=== PATIENT | female | born 1955 | race Caucasian/White ===

== ENCOUNTER 2016-04-29 12:20 | Inpatient (IN) | payer MEDICARE ==
[~2016-04-29] VITALS: Ht 165.1 cm; Wt 90.0 kg
[~2016-04-29 12:20] MED LIST: ACET500T76 PO; ALPR-475 PO; ALPR1TAB2 PO; ASPI325T4 PO; CHOL500014 PO; FLAX100029 PO; GABA300C PO; HYDR-3138 PO; HYDR-3144 PO; HYDR4TAB16 PO; LISI5TAB7 PO; MELO-184 PO; MORP30TA3 PO; MORP30TA81 PO; MULT-658 PO; NIAC500T85 PO; OMEP20CA9 PO; SIMV20TA3 PO
[2016-04-29] MEDS ORDERED: OXYcodone/APAP 10/325MG TABLET ONE (13:11)
[2016-04-29] MEDS ORDERED: OXYcodone/APAP 10/325MG TABLET PO ONE (13:30)
[2016-04-29] MEDS ORDERED: SODIUM CHLORIDE 0.9% 1,000 ML IV ONE ×2 (13:46→13:49)
[2016-04-29] MEDS ORDERED: SODIUM CHLORIDE FLUSH 10ML SYR IVF ONE (14:00)
[2016-04-29] MEDS ORDERED: ONDANSETRON 2MG/ML, 2ML IVPush ONE (14:00)
[2016-04-29] MEDS ORDERED: HYDROmorphone 1 MG/ML, 1ML ONE ×5 (14:22→21:18)
[2016-04-29] MEDS ORDERED: ONDANSETRON 2MG/ML, 2ML ONE ×2 (14:22→18:24)
[2016-04-29 14:25] LABS: HEMOGLOBIN 15.4 g/dL (11.7-16.4)
[2016-04-29] MEDS: HYDROmorphone 1 MG/ML, 1ML IVPush PRN ×2 (14:29→14:34)
[2016-04-29 14:51] LABS: BLOOD UREA NITROGEN 9 mg/dL (7-18)
[2016-04-29] MEDS ORDERED: HYDROmorphone 1 MG/ML, 1ML IV ONE ×3 (15:30→18:00)
[2016-04-29] MEDS ORDERED: HYDROmorphone 2 MG/ML, 1ML ONE ×2 (16:16→17:42)
[2016-04-29] MEDS: SODIUM CHLORIDE 0.9% 1,000 ML IV SCH (16:19)
[2016-04-29] MEDS: HYDROmorphone 2 MG/ML, 1ML IV PRN ×4 (16:26→23:53)
[2016-04-29] MEDS ORDERED: GUAIFENESIN/DM 200-20MG, 10ML UDC PO PRN (16:30)
[2016-04-29] MEDS ORDERED: ONDANSETRON 2MG/ML, 2ML IVP PRN (16:30)
[2016-04-29] MEDS ORDERED: ENOXAPARIN 40 MG/0.4 ML SQ SCH (16:30)
[2016-04-29] MEDS ORDERED: DOCUSATE 100 MG CAPSULE PO PRN (16:30)
[2016-04-29] MEDS ORDERED: LACTATED RINGERS 1,000 ML IV SCH (16:45)
[2016-04-29] MEDS ORDERED: FENTANYL PF 250 MCG/5ML ONE (17:32)
[2016-04-29] MEDS ORDERED: KETAMINE 10 MG/ML, 20ML ONE (17:32)
[2016-04-29] MEDS ORDERED: MIDAZOLAM 1 MG/ML, 2ML ONE (17:33)
[2016-04-29] MEDS ORDERED: NEOSTIGMINE 1 MG/ML, 10ML ONE (18:24)
[2016-04-29] MEDS ORDERED: PROPOFOL 10 MG/ML, 20ML ONE (18:24)
[2016-04-29] MEDS ORDERED: CEFAZOLIN 1,000 MG ONE (18:24)
[2016-04-29] MEDS ORDERED: DEXAMETHASONE 4 MG/ML, 1ML ONE (18:24)
[2016-04-29] MEDS ORDERED: GLYCOPYRROLATE 0.2MG/1ML ONE (18:24)
[2016-04-29] MEDS ORDERED: ROCURONIUM 10 MG/ML ONE (18:24)
[2016-04-29] MEDS ORDERED: PHENYLEPHRINE 10 MG/ML ONE (18:24)
[2016-04-29] MEDS ORDERED: EPHEDRINE 50 MG/ML, 1ML ONE (18:24)
[2016-04-29] MEDS ORDERED: MEPERIDINE/PF 25MG/0.5ML IVPush PRN (20:00)
[2016-04-29] MEDS ORDERED: PROMETHAZINE 25 MG/ML, 1ML IV PRN ×2 (20:00→22:30)
[2016-04-29] MEDS ORDERED: hydrALAzine 20 MG/ML, 1ML IV PRN (20:00)
[2016-04-29] MEDS ORDERED: ALBUTEROL SULFATE 2.5 MG/3 ML NPPB PRN (20:00)
[2016-04-29] MEDS ORDERED: OXYcodone 5 MG/5 ML ORAL.SOL UDC PO PRN ×2 (20:00→23:00)
[2016-04-29] MEDS ORDERED: EPHEDRINE 50 MG/ML, 1ML IVPush PRN (20:00)
[2016-04-29] MEDS ORDERED: LABETALOL 5MG/ML, 20ML IV PRN (20:00)
[2016-04-29] MEDS ORDERED: ACETAMINOPHEN 325 MG TABLET PO PRN (20:00)
[2016-04-29] MEDS ORDERED: ONDANSETRON 2MG/ML, 2ML IVPush PRN (20:00)
[2016-04-29] MEDS ORDERED: HYDROmorphone 1 MG/ML, 1ML IV PRN (20:00)
[2016-04-29] MEDS: FAMOTIDINE 20 MG TABLET PO SCH (21:00)
[2016-04-29] MEDS ORDERED: BUPIVACAINE/PF-EPI 0.5% 1:200K ONE (21:51)
[2016-04-29] MEDS ORDERED: BUPIVACAINE/PF-EPI 0.5% 1:200K IM ONE (21:52)
[2016-04-29] MEDS ORDERED: OXYcodone 5 MG/5 ML ORAL.SOL UDC ONE (22:14)
[2016-04-29] MEDS ORDERED: FENTANYL PF 100 MCG/2ML ONE (22:14)
[2016-04-29] MEDS ORDERED: PROMETHAZINE 25 MG/ML, 1ML ONE (22:15)
[2016-04-29] MEDS: FENTANYL PF 100 MCG/2ML IV PRN ×2 (22:20→22:35)
[2016-04-29] MEDS ORDERED: DIAZEPAM 5 MG/ML, 2ML IV ONE (22:30)
[2016-04-29] MEDS ORDERED: DIAZEPAM 5 MG/ML, 2ML ONE (22:44)
[2016-04-29] MEDS ORDERED: morphine SULFATE 10 MG/ML, 1ML IVPush PRN (23:00)
[2016-04-30] MEDS: KETOROLAC 30 MG/1 ML IVPush SCH ×3 (00:07→12:22)
[2016-04-30] MEDS: HYDROmorphone 2 MG/ML, 1ML IV PRN ×8 (00:12→23:40)
[2016-04-30 00:38] VITALS: BP 153/98
[2016-04-30] MEDS: LORazepam 2 MG/ML, 1ML IVPush PRN ×2 (01:27→05:25)
[2016-04-30] MEDS: SODIUM CHLORIDE 0.9% 1,000 ML IV SCH (02:19)
[2016-04-30] MEDS: CEFAZOLIN PMX 1GM/50ML 50 ML IVPB SCH ×2 (03:01→11:14)
[2016-04-30 03:05] VITALS: BP 138/84
[2016-04-30 06:34] LABS: HEMOGLOBIN 12.1 g/dL (11.7-16.4)
[2016-04-30 06:43] LABS: BLOOD UREA NITROGEN 8 mg/dL (7-18)
[2016-04-30 07:15] VITALS: BP 125/73
[2016-04-30] MEDS ORDERED: SODIUM CHLORIDE 0.9% 1,000 ML IV SCH (08:00)
[2016-04-30] MEDS: GABAPENTIN 300 MG CAPSULE PO SCH (09:08)
[2016-04-30] MEDS: FAMOTIDINE 20 MG TABLET PO SCH ×2 (09:08→21:37)
[2016-04-30] MEDS: CHOLECALCIFEROL 1,000 UNIT TABLET PO SCH (09:09)
[2016-04-30] MEDS: ANASTROZOLE 1 MG TABLET PO SCH (09:09)
[2016-04-30] MEDS: MULTIVITAMIN 1 TABLET PO SCH (09:09)
[2016-04-30] MEDS: OXYBUTYNIN CHLORIDE 5 MG TABLET PO SCH ×3 (09:39→21:37)
[2016-04-30] MEDS: HYDROcodone/APAP 5/325 TABLET PO PRN ×3 (11:13→21:37)
[2016-04-30 13:24] VITALS: BP 103/58
[2016-04-30] MEDS: ENOXAPARIN 40 MG/0.4 ML SQ SCH (18:00)
[2016-04-30 19:47] VITALS: BP 117/68
[2016-04-30 21:19] LABS: PATH.CAST-FLAG NOT PRESENT; SPERM-FLAG NOT PRESENT; SRC-FLAG NOT PRESENT; XTAL-FLAG NOT PRESENT; YLC-FLAG NOT PRESENT
[2016-05-01 01:28] VITALS: BP 129/69
[2016-05-01] MEDS: HYDROcodone/APAP 5/325 TABLET PO PRN ×3 (01:42→10:01)
[2016-05-01] MEDS: HYDROmorphone 2 MG/ML, 1ML IV PRN ×4 (04:39→13:59)
[2016-05-01 05:33] LABS: HEMOGLOBIN 11.3 g/dL (11.7-16.4)
[2016-05-01 06:12] LABS: BLOOD UREA NITROGEN 8 mg/dL (7-18)
[2016-05-01] MEDS: FAMOTIDINE 20 MG TABLET PO SCH ×2 (08:04→22:23)
[2016-05-01] MEDS: GABAPENTIN 300 MG CAPSULE PO SCH (08:04)
[2016-05-01] MEDS: OXYBUTYNIN CHLORIDE 5 MG TABLET PO SCH ×3 (08:04→22:23)
[2016-05-01] MEDS: MULTIVITAMIN 1 TABLET PO SCH (08:04)
[2016-05-01] MEDS: CHOLECALCIFEROL 1,000 UNIT TABLET PO SCH (08:04)
[2016-05-01] MEDS: ANASTROZOLE 1 MG TABLET PO SCH (08:05)
[2016-05-01 08:30] VITALS: BP 101/60
[2016-05-01] MEDS ORDERED: OXYcodone 5 MG/5 ML ORAL.SOL UDC PO PRN (14:00)
[2016-05-01 14:17] VITALS: BP 121/70
[2016-05-01] MEDS: ACETAMINOPHEN 500 MG TABLET PO SCH ×2 (15:16→20:01)
[2016-05-01] MEDS ORDERED: OXYcodone IR 5MG TABLET PO PRN (17:30)
[2016-05-01] MEDS: ENOXAPARIN 40 MG/0.4 ML SQ SCH (18:09)
[2016-05-01] MEDS: DIAZEPAM 5 MG TABLET PO PRN (20:08)
[2016-05-01 20:50] VITALS: BP 110/69
[2016-05-01] MEDS: OXYcodone/APAP 10/325MG TABLET PO PRN (22:23)
[2016-05-02 02:50] VITALS: BP 148/79
[2016-05-02] MEDS: OXYcodone/APAP 10/325MG TABLET PO PRN (04:04)
[2016-05-02 06:40] LABS: HEMOGLOBIN 10.7 g/dL (11.7-16.4)
[2016-05-02 06:47] LABS: BLOOD UREA NITROGEN 11 mg/dL (7-18)
[2016-05-02 06:55] VITALS: BP 101/52
[2016-05-02] MEDS ORDERED: OXYcodone IR 5MG TABLET PO PRN (08:00)
[2016-05-02] MEDS: CHOLECALCIFEROL 1,000 UNIT TABLET PO SCH (08:15)
[2016-05-02] MEDS: GABAPENTIN 300 MG CAPSULE PO SCH (08:16)
[2016-05-02] MEDS: ANASTROZOLE 1 MG TABLET PO SCH (08:16)
[2016-05-02] MEDS: OXYBUTYNIN CHLORIDE 5 MG TABLET PO SCH ×3 (08:16→23:00)
[2016-05-02] MEDS: FAMOTIDINE 20 MG TABLET PO SCH ×2 (08:16→23:00)
[2016-05-02] MEDS: MULTIVITAMIN 1 TABLET PO SCH (08:16)
[2016-05-02] MEDS: DIAZEPAM 5 MG TABLET PO PRN ×3 (08:19→20:19)
[2016-05-02] MEDS ORDERED: ACETAMINOPHEN 500 MG TABLET PO ONE (09:00)
[2016-05-02] MEDS: OXYcodone IR 5MG TABLET PO PRN ×4 (13:33→23:00)
[2016-05-02 13:35] VITALS: BP 134/73
[2016-05-02] MEDS ORDERED: FAMO20TA7 PO (14:04)
[2016-05-02] MEDS ORDERED: OXYB5TAB7 PO (14:04)
[2016-05-02] MEDS ORDERED: OXYC5TAB3 PO (14:04)
[2016-05-02] MEDS ORDERED: TRAM50TA2 PO (14:04)
[2016-05-02] MEDS ORDERED: DIAZ5TAB4 PO (14:04)
[2016-05-02] MEDS ORDERED: ASPI325T4 PO (14:04)
[2016-05-02] MEDS: ENOXAPARIN 40 MG/0.4 ML SQ SCH (17:44)
[2016-05-02 22:46] VITALS: BP 132/67
[2016-05-03] MEDS: OXYcodone IR 5MG TABLET PO PRN ×3 (02:21→08:56)
[2016-05-03 02:23] VITALS: BP 112/64
[2016-05-03 04:15] VITALS: BP 101/63
[2016-05-03] MEDS: DIAZEPAM 5 MG TABLET PO PRN (04:39)
[2016-05-03 06:01] LABS: BLOOD UREA NITROGEN 14 mg/dL (7-18)
[2016-05-03 06:22] LABS: HEMOGLOBIN 10.7 g/dL (11.7-16.4)
[2016-05-03 08:48] VITALS: BP 115/75
[2016-05-03] MEDS: FAMOTIDINE 20 MG TABLET PO SCH (08:56)
[2016-05-03] MEDS: OXYBUTYNIN CHLORIDE 5 MG TABLET PO SCH (08:56)
[2016-05-03] MEDS: CHOLECALCIFEROL 1,000 UNIT TABLET PO SCH (08:56)
[2016-05-03] MEDS: GABAPENTIN 300 MG CAPSULE PO SCH (08:56)
[2016-05-03] MEDS: MULTIVITAMIN 1 TABLET PO SCH (08:56)
[2016-05-03] MEDS: ANASTROZOLE 1 MG TABLET PO SCH (08:58)
== END 2016-05-03 09:16 | disposition home or self-care (01) | DRG 494 ==
LOC: ED 13:46 → EDIP 14:43 → 4NOR 23:36
PROVIDERS: ADMIT Internal Medicine; ATTEND Internal Medicine
PROC: 0T9B70Z Drainage of Bladder with Drainage Device, Via Natural or Artificial Opening (ICD-10-PCS; 2016-04-29)
PROC: 0QSH04Z Reposition Left Tibia with Internal Fixation Device, Open Approach (ICD-10-PCS; principal; 2016-04-29 17:00)
DX: S82.142A Displaced bicondylar fracture of left tibia, initial encounter for closed fracture (principal); D72.829 Elevated white blood cell count, unspecified; F12.90 Cannabis use, unspecified, uncomplicated; M19.90 Unspecified osteoarthritis, unspecified site; R33.9 Retention of urine, unspecified; Z96.643 Presence of artificial hip joint, bilateral; W01.0XXA Fall on same level from slipping, tripping and stumbling without subsequent striking against object, initial encounter; Y92.009 Unspecified place in unspecified non-institutional (private) residence as the place of occurrence of the external cause; Z79.811 Long term (current) use of aromatase inhibitors; Z85.3 Personal history of malignant neoplasm of breast; Z87.891 Personal history of nicotine dependence; Z79.899 Other long term (current) drug therapy
CPT/HCPCS: 36415; 76001; 80048; 81001; 82040; 85025; 93005; 96374; 96375; C1713; J0690; J1100; J1170; J1650; J2250; J2405; J2550; J2704; J2710; J3010; J3490; C1762; J2060; J2370; J7030; J7120

== ENCOUNTER 2016-05-29 10:11 | Inpatient (IN) | payer MEDICARE ==
[~2016-05-29] VITALS: Ht 165.1 cm; Wt 82.1 kg
[~2016-05-29 10:11] MED LIST changes: +DIAZ5TAB4 PO; +FAMO20TA7 PO; +OXYB5TAB7 PO; +OXYC5TAB3 PO; +TRAM50TA2 PO
[2016-05-29] MEDS ORDERED: LIDOCAINE 1%, 2ML ONE (10:53)
[2016-05-29] MEDS ORDERED: ANAS1TAB3 PO (11:02)
[2016-05-29] MEDS ORDERED: MULT-516 PO (11:02)
[2016-05-29] MEDS ORDERED: ALPR-475 PO (11:02)
[2016-05-29] MEDS ORDERED: CHOL40002 PO (11:02)
[2016-05-29] MEDS ORDERED: OMEP20TA62 PO (11:02)
[2016-05-29] MEDS ORDERED: NIAC10002 PO (11:02)
[2016-05-29] MEDS ORDERED: OXYC-302 PO (11:02)
[2016-05-29] MEDS ORDERED: SULF1TAB24 PO (11:02)
[2016-05-29 11:07] VITALS: BP 113/71
[2016-05-29] MEDS: LACTATED RINGERS 1,000 ML IV SCH (11:18)
[2016-05-29] MEDS ORDERED: LIDOCAINE 1%, 2ML SQ PRN (11:30)
[2016-05-29] MEDS ORDERED: OXYcodone/APAP 5/325MG TABLET PO ONE (12:30)
[2016-05-29] MEDS ORDERED: FENTANYL PF 250 MCG/5ML ONE (13:09)
[2016-05-29] MEDS ORDERED: MIDAZOLAM 1 MG/ML, 2ML ONE (13:09)
[2016-05-29] MEDS ORDERED: HYDROmorphone 1 MG/ML, 1ML IV PRN (14:00)
[2016-05-29] MEDS ORDERED: hydrALAzine 20 MG/ML, 1ML IV PRN (14:00)
[2016-05-29] MEDS ORDERED: MIDAZOLAM 1 MG/ML, 2ML IV PRN (14:00)
[2016-05-29] MEDS ORDERED: PROMETHAZINE 25 MG/ML, 1ML IV PRN (14:00)
[2016-05-29] MEDS ORDERED: EPHEDRINE 50 MG/ML, 1ML IVPush PRN (14:00)
[2016-05-29] MEDS ORDERED: METOPROLOL 1 MG/ML, 5ML IV PRN (14:00)
[2016-05-29] MEDS ORDERED: MEPERIDINE/PF 25MG/0.5ML IVPush PRN (14:00)
[2016-05-29] MEDS ORDERED: FENTANYL PF 100 MCG/2ML IV PRN (14:00)
[2016-05-29] MEDS ORDERED: LABETALOL 5MG/ML, 20ML IV PRN (14:00)
[2016-05-29] MEDS ORDERED: ACETAMINOPHEN 325 MG TABLET PO PRN (14:00)
[2016-05-29] MEDS ORDERED: OXYcodone 5 MG/5 ML ORAL.SOL UDC PO PRN (14:00)
[2016-05-29] MEDS ORDERED: ONDANSETRON 2MG/ML, 2ML IVPush PRN ×2 (14:00→14:30)
[2016-05-29] MEDS ORDERED: ALBUTEROL SULFATE 2.5 MG/3 ML NPPB PRN (14:00)
[2016-05-29] MEDS ORDERED: OXYcodone/APAP 5/325MG TABLET PO PRN (14:30)
[2016-05-29] MEDS ORDERED: BISACODYL 10 MG SUPP PR PRN (14:30)
[2016-05-29] MEDS ORDERED: PROMETHAZINE 25 MG/ML, 1ML IM PRN (14:30)
[2016-05-29] MEDS ORDERED: VANCOMYCIN PER PHARMACY MC PRN (14:30)
[2016-05-29 15:45] VITALS: BP 106/63
[2016-05-29] MEDS ORDERED: CEFAZOLIN 1,000 MG ONE (16:14)
[2016-05-29] MEDS ORDERED: PROPOFOL 10 MG/ML, 20ML ONE (16:14)
[2016-05-29] MEDS ORDERED: DEXAMETHASONE 4 MG/ML, 1ML ONE (16:14)
[2016-05-29] MEDS ORDERED: KETOROLAC 30 MG/1 ML ONE (16:14)
[2016-05-29] MEDS: HYDROcodone/APAP 5/325 TABLET PO PRN (16:52)
[2016-05-29] MEDS ORDERED: PHARMACOKINETIC MONITORING MC PRN (17:30)
[2016-05-29] MEDS ORDERED: PHARMACOKINETIC CONSULTATION MC ONE (17:30)
[2016-05-29] MEDS: VANCOMYCIN 1,500 MG in SODIUM CHLORIDE 0.9% 250 ML IV SCH (18:27)
[2016-05-29 19:25] VITALS: BP 90/53
[2016-05-29] MEDS: CEFAZOLIN PMX 1GM/50ML 50 ML IVPB SCH (20:32)
[2016-05-30 00:23] VITALS: BP 95/63
[2016-05-30 03:57] VITALS: BP 97/70
[2016-05-30] MEDS: CEFAZOLIN PMX 1GM/50ML 50 ML IVPB SCH ×2 (04:53→13:28)
[2016-05-30 05:09] LABS: BLOOD UREA NITROGEN 37 mg/dL (7-18)
[2016-05-30] MEDS: VANCOMYCIN 1,500 MG in SODIUM CHLORIDE 0.9% 250 ML IV SCH (05:28)
[2016-05-30] MEDS: HYDROcodone/APAP 5/325 TABLET PO PRN (05:34)
[2016-05-30 07:15] VITALS: BP 101/65
[2016-05-30] MEDS: HYDROmorphone 1 MG/ML, 1ML IVPush PRN (08:40)
[2016-05-30] MEDS: ENOXAPARIN 40 MG/0.4 ML SQ SCH (10:11)
[2016-05-30] MEDS: OXYcodone/APAP 7.5/325MG TABLET PO PRN ×3 (14:04→22:25)
[2016-05-30 14:25] VITALS: BP 107/66
[2016-05-30] MEDS ORDERED: CEFAZOLIN PMX 2GM/100ML 100 ML IV SCH (14:30)
[2016-05-30] MEDS ORDERED: CEFAZOLIN PMX 1GM/50ML 50 ML IV ONE (15:00)
[2016-05-30 19:21] VITALS: BP 103/63
[2016-05-30] MEDS: DIAZEPAM 5 MG TABLET PO PRN (20:12)
[2016-05-30] MEDS: CEFAZOLIN PMX 2GM/50ML 50 ML IV SCH (22:26)
[2016-05-31 01:20] VITALS: BP 136/70
[2016-05-31] MEDS: OXYcodone/APAP 7.5/325MG TABLET PO PRN ×4 (05:50→23:31)
[2016-05-31] MEDS: CEFAZOLIN PMX 2GM/50ML 50 ML IV SCH ×3 (06:09→23:31)
[2016-05-31 07:09] VITALS: BP 118/66
[2016-05-31] MEDS: ENOXAPARIN 40 MG/0.4 ML SQ SCH (09:51)
[2016-05-31 14:38] VITALS: BP 134/82
[2016-05-31 18:25] VITALS: BP 136/82
[2016-05-31] MEDS: HYDROmorphone 1 MG/ML, 1ML IVPush PRN ×2 (21:13→21:49)
[2016-05-31] MEDS: DIAZEPAM 5 MG TABLET PO PRN (21:18)
[2016-06-01 01:35] VITALS: BP 141/97
[2016-06-01] MEDS: OXYcodone/APAP 7.5/325MG TABLET PO PRN ×6 (03:15→23:59)
[2016-06-01] MEDS: SENNA/DOCUSATE TABLET PO PRN ×2 (03:53→23:59)
[2016-06-01 06:33] VITALS: BP 129/67
[2016-06-01] MEDS: CEFAZOLIN PMX 2GM/50ML 50 ML IV SCH ×3 (06:45→23:49)
[2016-06-01] MEDS: ENOXAPARIN 40 MG/0.4 ML SQ SCH (10:07)
[2016-06-01 14:04] VITALS: BP 147/88
[2016-06-01] MEDS: HYDROmorphone 1 MG/ML, 1ML IVPush PRN (14:40)
[2016-06-01 20:37] VITALS: BP 171/68
[2016-06-02] MEDS: OXYcodone/APAP 7.5/325MG TABLET PO PRN ×7 (00:46→22:12)
[2016-06-02] MEDS: MAGNESIUM HYDROXIDE 8%, 30ML UDC PO PRN (00:46)
[2016-06-02 00:49] VITALS: BP 145/82
[2016-06-02] MEDS: CEFAZOLIN PMX 2GM/50ML 50 ML IV SCH ×3 (06:45→23:42)
[2016-06-02 07:10] VITALS: BP 119/64
[2016-06-02] MEDS: HYDROmorphone 1 MG/ML, 1ML IVPush PRN (09:19)
[2016-06-02] MEDS: ENOXAPARIN 40 MG/0.4 ML SQ SCH (09:19)
[2016-06-02 13:37] VITALS: BP 119/64
[2016-06-02] MEDS: DIAZEPAM 5 MG TABLET PO PRN (20:01)
[2016-06-02 20:10] VITALS: BP 149/82
[2016-06-03 01:22] VITALS: BP 138/80
[2016-06-03] MEDS: OXYcodone/APAP 7.5/325MG TABLET PO PRN ×4 (02:02→20:54)
[2016-06-03] MEDS: CEFAZOLIN PMX 2GM/50ML 50 ML IV SCH ×2 (06:37→15:22)
[2016-06-03 07:07] VITALS: BP 164/93
[2016-06-03] MEDS: HYDROmorphone 1 MG/ML, 1ML IVPush PRN ×3 (09:00→21:42)
[2016-06-03] MEDS: ENOXAPARIN 40 MG/0.4 ML SQ SCH (10:34)
[2016-06-03] MEDS ORDERED: LORazepam 2 MG/ML, 1ML IVPush ONE (13:00)
[2016-06-03 13:01] VITALS: BP 115/72
[2016-06-03 18:29] VITALS: BP 146/81
[2016-06-03] MEDS: DIAZEPAM 5 MG TABLET PO PRN (20:54)
[2016-06-04] MEDS: HYDROmorphone 1 MG/ML, 1ML IVPush PRN ×8 (01:26→20:23)
[2016-06-04 02:06] VITALS: BP 120/76
[2016-06-04] MEDS: CEFAZOLIN PMX 2GM/50ML 50 ML IV SCH ×3 (02:09→18:03)
[2016-06-04 07:00] VITALS: BP 156/76
[2016-06-04] MEDS ORDERED: MIDAZOLAM 1 MG/ML, 2ML ONE ×2 (09:20→11:11)
[2016-06-04] MEDS ORDERED: FENTANYL PF 250 MCG/5ML ONE (09:20)
[2016-06-04] MEDS: ENOXAPARIN 40 MG/0.4 ML SQ SCH (10:00)
[2016-06-04] MEDS ORDERED: HYDROmorphone 2 MG/ML, 1ML ONE (10:59)
[2016-06-04] MEDS: HYDROmorphone 1 MG/ML, 1ML IV PRN ×2 (11:00→11:07)
[2016-06-04] MEDS ORDERED: FENTANYL PF 100 MCG/2ML ONE ×3 (11:11→11:52)
[2016-06-04] MEDS: FENTANYL PF 100 MCG/2ML IV PRN ×4 (11:14→11:58)
[2016-06-04] MEDS: MIDAZOLAM 1 MG/ML, 2ML IV PRN ×2 (11:18→11:39)
[2016-06-04] MEDS ORDERED: ONDANSETRON 2MG/ML, 2ML IVPush PRN (11:30)
[2016-06-04] MEDS ORDERED: ACETAMINOPHEN 325 MG TABLET PO PRN (11:30)
[2016-06-04] MEDS ORDERED: OXYcodone 5 MG/5 ML ORAL.SOL UDC PO PRN (11:30)
[2016-06-04] MEDS: OXYcodone/APAP 7.5/325MG TABLET PO PRN ×3 (13:01→21:32)
[2016-06-04 13:20] VITALS: BP 138/79
[2016-06-04 14:20] VITALS: BP 114/72
[2016-06-04] MEDS ORDERED: SUCCINYLCHOLINE 20 MG/ML, 10ML ONE (15:41)
[2016-06-04] MEDS ORDERED: ROCURONIUM 10 MG/ML ONE (15:41)
[2016-06-04] MEDS ORDERED: PROPOFOL 10 MG/ML, 20ML ONE (15:41)
[2016-06-04] MEDS ORDERED: ONDANSETRON 2MG/ML, 2ML ONE (15:41)
[2016-06-04] MEDS ORDERED: CEFAZOLIN 1,000 MG ONE (15:41)
[2016-06-04 19:09] VITALS: BP 98/62
[2016-06-05] MEDS: HYDROmorphone 1 MG/ML, 1ML IVPush PRN ×8 (00:03→23:52)
[2016-06-05 00:15] VITALS: BP 100/67
[2016-06-05] MEDS: OXYcodone/APAP 7.5/325MG TABLET PO PRN ×6 (01:39→21:42)
[2016-06-05] MEDS: CEFAZOLIN PMX 2GM/50ML 50 ML IV SCH ×2 (01:39→09:10)
[2016-06-05 03:11] VITALS: BP 100/66
[2016-06-05 06:35] VITALS: BP 110/71
[2016-06-05] MEDS: SENNA/DOCUSATE TABLET PO PRN (09:10)
[2016-06-05] MEDS: ENOXAPARIN 40 MG/0.4 ML SQ SCH (09:10)
[2016-06-05 12:52] VITALS: BP 101/61
[2016-06-05] MEDS ORDERED: MICAFUNGIN 100 MG in SODIUM CHLORIDE 0.9% 100 ML IV SCH (13:00)
[2016-06-05] MEDS: ERTAPENEM 1 GM in SODIUM CHLORIDE 0.9% 50 ML IV SCH (13:03)
[2016-06-05 18:28] VITALS: BP 132/80
[2016-06-06 00:42] VITALS: BP 98/66
[2016-06-06] MEDS: HYDROcodone/APAP 5/325 TABLET PO PRN (05:15)
[2016-06-06] MEDS: HYDROmorphone 1 MG/ML, 1ML IVPush PRN ×7 (05:16→21:53)
[2016-06-06 07:24] VITALS: BP 112/73
[2016-06-06] MEDS: HYDROcodone/APAP 10/325 MG TABLET PO PRN ×3 (11:22→20:29)
[2016-06-06] MEDS: FLUCONAZOLE 200 MG TABLET PO SCH (11:22)
[2016-06-06] MEDS: ENOXAPARIN 40 MG/0.4 ML SQ SCH (11:23)
[2016-06-06 13:39] VITALS: BP 122/68
[2016-06-06] MEDS: ERTAPENEM 1 GM in SODIUM CHLORIDE 0.9% 50 ML IV SCH (13:42)
[2016-06-06 20:20] VITALS: BP 119/69
[2016-06-07] MEDS: HYDROcodone/APAP 10/325 MG TABLET PO PRN ×6 (00:07→23:42)
[2016-06-07] MEDS: HYDROmorphone 1 MG/ML, 1ML IVPush PRN ×9 (00:07→23:43)
[2016-06-07 01:30] VITALS: BP 98/59
[2016-06-07 07:00] VITALS: BP 114/61
[2016-06-07] MEDS: ENOXAPARIN 40 MG/0.4 ML SQ SCH (10:36)
[2016-06-07] MEDS: FLUCONAZOLE 200 MG TABLET PO SCH (10:36)
[2016-06-07] MEDS: SENNA/DOCUSATE TABLET PO PRN (10:45)
[2016-06-07] MEDS: ERTAPENEM 1 GM in SODIUM CHLORIDE 0.9% 50 ML IV SCH (12:56)
[2016-06-07 13:19] LABS: ASPARTATE AMINO TRANSFERASE 62 U/L (15-37); BLOOD UREA NITROGEN 10 mg/dL (7-18)
[2016-06-07 14:31] VITALS: BP 110/67
[2016-06-07] MEDS: ANASTROZOLE 1 MG TABLET PO SCH (16:36)
[2016-06-07 18:28] VITALS: BP 100/51
[2016-06-08 01:42] VITALS: BP 107/66
[2016-06-08] MEDS: HYDROmorphone 1 MG/ML, 1ML IVPush PRN ×7 (02:45→22:44)
[2016-06-08] MEDS: HYDROcodone/APAP 10/325 MG TABLET PO PRN ×5 (03:37→23:34)
[2016-06-08 07:03] VITALS: BP 107/67
[2016-06-08] MEDS: FLUCONAZOLE 200 MG TABLET PO SCH (09:20)
[2016-06-08] MEDS: ENOXAPARIN 40 MG/0.4 ML SQ SCH (09:21)
[2016-06-08] MEDS: ANASTROZOLE 1 MG TABLET PO SCH (10:57)
[2016-06-08] MEDS: ERTAPENEM 1 GM in SODIUM CHLORIDE 0.9% 50 ML IV SCH (14:03)
[2016-06-08 15:21] VITALS: BP 126/69
[2016-06-08 18:35] VITALS: BP 111/69
[2016-06-09 01:57] VITALS: BP 118/69
[2016-06-09] MEDS: HYDROmorphone 1 MG/ML, 1ML IVPush PRN ×7 (02:02→20:39)
[2016-06-09] MEDS: SENNA/DOCUSATE TABLET PO PRN (02:56)
[2016-06-09] MEDS: HYDROcodone/APAP 10/325 MG TABLET PO PRN ×5 (03:32→21:43)
[2016-06-09 06:08] LABS: ASPARTATE AMINO TRANSFERASE 49 U/L (15-37); BLOOD UREA NITROGEN 13 mg/dL (7-18)
[2016-06-09 06:51] VITALS: BP 111/71
[2016-06-09] MEDS: FLUCONAZOLE 200 MG TABLET PO SCH (07:44)
[2016-06-09] MEDS: ENOXAPARIN 40 MG/0.4 ML SQ SCH (07:44)
[2016-06-09] MEDS: ANASTROZOLE 1 MG TABLET PO SCH (12:02)
[2016-06-09] MEDS: ERTAPENEM 1 GM in SODIUM CHLORIDE 0.9% 50 ML IV SCH (12:44)
[2016-06-09 13:25] VITALS: BP 101/60
[2016-06-09 18:38] VITALS: BP 110/72
[2016-06-10] MEDS: HYDROmorphone 1 MG/ML, 1ML IVPush PRN ×8 (00:18→22:50)
[2016-06-10] MEDS: HYDROcodone/APAP 10/325 MG TABLET PO PRN ×6 (01:46→23:45)
[2016-06-10 01:47] VITALS: BP 106/61
[2016-06-10 06:56] VITALS: BP 101/67
[2016-06-10] MEDS: ENOXAPARIN 40 MG/0.4 ML SQ SCH (09:38)
[2016-06-10] MEDS: SENNA/DOCUSATE TABLET PO PRN (09:59)
[2016-06-10] MEDS: FLUCONAZOLE 200 MG TABLET PO SCH (10:51)
[2016-06-10] MEDS: ANASTROZOLE 1 MG TABLET PO SCH (11:06)
[2016-06-10] MEDS: ERTAPENEM 1 GM in SODIUM CHLORIDE 0.9% 50 ML IV SCH (12:45)
[2016-06-10 13:28] VITALS: BP 101/69
[2016-06-10 20:18] VITALS: BP 107/61
[2016-06-11] MEDS: HYDROmorphone 1 MG/ML, 1ML IVPush PRN ×7 (02:32→21:44)
[2016-06-11] MEDS: HYDROcodone/APAP 10/325 MG TABLET PO PRN ×4 (03:50→20:32)
[2016-06-11 03:53] VITALS: BP 108/66
[2016-06-11 06:30] VITALS: BP 113/68
[2016-06-11] MEDS: SENNA/DOCUSATE TABLET PO PRN (08:26)
[2016-06-11] MEDS: DIAZEPAM 5 MG TABLET PO PRN (09:22)
[2016-06-11] MEDS: FLUCONAZOLE 200 MG TABLET PO SCH (10:18)
[2016-06-11] MEDS: ENOXAPARIN 40 MG/0.4 ML SQ SCH (10:18)
[2016-06-11] MEDS: ANASTROZOLE 1 MG TABLET PO SCH (12:11)
[2016-06-11 13:05] VITALS: BP 135/81
[2016-06-11] MEDS: ERTAPENEM 1 GM in SODIUM CHLORIDE 0.9% 50 ML IV SCH (13:12)
[2016-06-11 19:47] VITALS: BP 112/65
[2016-06-12] MEDS: HYDROmorphone 1 MG/ML, 1ML IVPush PRN ×6 (00:38→22:04)
[2016-06-12] MEDS: HYDROcodone/APAP 10/325 MG TABLET PO PRN ×4 (00:39→22:04)
[2016-06-12 01:59] VITALS: BP 117/63
[2016-06-12 07:30] VITALS: BP 112/65
[2016-06-12] MEDS ORDERED: MIDAZOLAM 1 MG/ML, 2ML ONE ×2 (07:57→13:07)
[2016-06-12] MEDS ORDERED: FENTANYL PF 250 MCG/5ML ONE (07:57)
[2016-06-12] MEDS: ENOXAPARIN 40 MG/0.4 ML SQ SCH (10:00)
[2016-06-12] MEDS ORDERED: CEFAZOLIN 1,000 MG ONE (10:33)
[2016-06-12] MEDS ORDERED: PROPOFOL 10 MG/ML, 50ML ONE (10:33)
[2016-06-12] MEDS ORDERED: KETAMINE 100 MG/ML, 5ML ONE (10:33)
[2016-06-12] MEDS ORDERED: ONDANSETRON 2MG/ML, 2ML ONE (10:33)
[2016-06-12] MEDS ORDERED: HYDROmorphone 1 MG/ML, 1ML ONE ×2 (10:56→12:25)
[2016-06-12] MEDS ORDERED: ACETAMINOPHEN 325 MG TABLET PO PRN (11:30)
[2016-06-12] MEDS ORDERED: PROMETHAZINE 25 MG/ML, 1ML IV PRN (11:30)
[2016-06-12] MEDS ORDERED: OXYcodone 5 MG/5 ML ORAL.SOL UDC PO PRN (11:30)
[2016-06-12] MEDS ORDERED: HYDROcodone/APAP 7.5-325MG/15ML UDC PO PRN (11:30)
[2016-06-12] MEDS ORDERED: ONDANSETRON 2MG/ML, 2ML IVPush PRN (11:30)
[2016-06-12] MEDS ORDERED: FENTANYL PF 100 MCG/2ML IV PRN (11:30)
[2016-06-12] MEDS ORDERED: MEPERIDINE/PF 25MG/0.5ML IVPush PRN (11:30)
[2016-06-12] MEDS ORDERED: HYDROcodone/APAP 7.5-325MG/15ML UDC ONE (12:38)
[2016-06-12] MEDS: MIDAZOLAM 1 MG/ML, 2ML IV PRN ×2 (13:00→14:00)
[2016-06-12] MEDS: HYDROmorphone 1 MG/ML, 1ML IV PRN ×3 (13:00→13:45)
[2016-06-12] MEDS ORDERED: HYDROmorphone 2 MG/ML, 1ML ONE (13:04)
[2016-06-12] MEDS: DIAZEPAM 5 MG TABLET PO PRN ×2 (14:30→18:49)
[2016-06-12] MEDS: ERTAPENEM 1 GM in SODIUM CHLORIDE 0.9% 50 ML IV SCH (14:39)
[2016-06-12] MEDS: FLUCONAZOLE 200 MG TABLET PO SCH (14:39)
[2016-06-12] MEDS: ANASTROZOLE 1 MG TABLET PO SCH (14:41)
[2016-06-12 15:00] VITALS: BP 115/67
[2016-06-12 19:43] VITALS: BP 97/62
[2016-06-13] MEDS: HYDROmorphone 1 MG/ML, 1ML IVPush PRN ×7 (01:15→23:26)
[2016-06-13 01:26] VITALS: BP 93/58
[2016-06-13] MEDS: HYDROcodone/APAP 10/325 MG TABLET PO PRN ×5 (01:58→20:47)
[2016-06-13 06:45] VITALS: BP 97/60
[2016-06-13] MEDS: ANASTROZOLE 1 MG TABLET PO SCH (09:09)
[2016-06-13] MEDS: ENOXAPARIN 40 MG/0.4 ML SQ SCH (09:59)
[2016-06-13] MEDS: FLUCONAZOLE 200 MG TABLET PO SCH (10:00)
[2016-06-13 14:08] VITALS: BP 93/60
[2016-06-13] MEDS: ERTAPENEM 1 GM in SODIUM CHLORIDE 0.9% 50 ML IV SCH (14:22)
[2016-06-13 19:37] VITALS: BP 106/67
[2016-06-14 01:03] VITALS: BP 102/62
[2016-06-14] MEDS: HYDROcodone/APAP 10/325 MG TABLET PO PRN ×6 (01:33→23:01)
[2016-06-14] MEDS: HYDROmorphone 1 MG/ML, 1ML IVPush PRN ×7 (02:55→23:01)
[2016-06-14 07:18] VITALS: BP 95/61
[2016-06-14] MEDS: ANASTROZOLE 1 MG TABLET PO SCH (09:01)
[2016-06-14] MEDS: FLUCONAZOLE 200 MG TABLET PO SCH (09:36)
[2016-06-14] MEDS: ENOXAPARIN 40 MG/0.4 ML SQ SCH (09:36)
[2016-06-14] MEDS: DIAZEPAM 5 MG TABLET PO PRN (09:36)
[2016-06-14 14:00] VITALS: BP 105/64
[2016-06-14] MEDS: ERTAPENEM 1 GM in SODIUM CHLORIDE 0.9% 50 ML IV SCH ×2 (14:14→14:33)
[2016-06-14] MEDS: SENNA/DOCUSATE TABLET PO PRN (14:18)
[2016-06-14 18:40] VITALS: BP 120/71
[2016-06-15 00:54] VITALS: BP 93/56
[2016-06-15] MEDS: HYDROmorphone 1 MG/ML, 1ML IVPush PRN ×9 (01:53→23:30)
[2016-06-15] MEDS: HYDROcodone/APAP 10/325 MG TABLET PO PRN ×5 (03:09→20:51)
[2016-06-15 07:12] VITALS: BP 99/64
[2016-06-15] MEDS: ANASTROZOLE 1 MG TABLET PO SCH (08:03)
[2016-06-15] MEDS: FLUCONAZOLE 200 MG TABLET PO SCH (10:33)
[2016-06-15] MEDS: ENOXAPARIN 40 MG/0.4 ML SQ SCH (10:34)
[2016-06-15] MEDS: ERTAPENEM 1 GM in SODIUM CHLORIDE 0.9% 50 ML IV SCH (15:16)
[2016-06-15 15:40] VITALS: BP 109/67
[2016-06-15] MEDS: SENNA/DOCUSATE TABLET PO PRN (18:00)
[2016-06-15 20:00] VITALS: BP 105/65
[2016-06-16] MEDS: HYDROcodone/APAP 10/325 MG TABLET PO PRN ×6 (00:34→22:43)
[2016-06-16 03:31] VITALS: BP 108/62
[2016-06-16] MEDS: HYDROmorphone 1 MG/ML, 1ML IVPush PRN ×8 (03:43→23:23)
[2016-06-16 04:44] LABS: ASPARTATE AMINO TRANSFERASE 30 U/L (15-37); BLOOD UREA NITROGEN 12 mg/dL (7-18)
[2016-06-16 07:53] VITALS: BP 127/78
[2016-06-16] MEDS: DIAZEPAM 5 MG TABLET PO PRN ×2 (08:06→14:42)
[2016-06-16] MEDS: FLUCONAZOLE 200 MG TABLET PO SCH (10:52)
[2016-06-16] MEDS: ANASTROZOLE 1 MG TABLET PO SCH (10:52)
[2016-06-16] MEDS: ENOXAPARIN 40 MG/0.4 ML SQ SCH (10:53)
[2016-06-16 13:09] VITALS: BP 109/63
[2016-06-16] MEDS: ERTAPENEM 1 GM in SODIUM CHLORIDE 0.9% 50 ML IV SCH (14:57)
[2016-06-16] MEDS: SENNA/DOCUSATE TABLET PO PRN (18:32)
[2016-06-16 20:09] VITALS: BP 97/59
[2016-06-16] MEDS: MAGNESIUM HYDROXIDE 8%, 30ML UDC PO PRN (23:22)
[2016-06-17 01:02] VITALS: BP 98/61
[2016-06-17] MEDS: HYDROmorphone 1 MG/ML, 1ML IVPush PRN ×8 (02:11→23:18)
[2016-06-17] MEDS: HYDROcodone/APAP 10/325 MG TABLET PO PRN ×5 (06:07→22:42)
[2016-06-17 07:01] VITALS: BP 104/67
[2016-06-17] MEDS: ENOXAPARIN 40 MG/0.4 ML SQ SCH (09:18)
[2016-06-17] MEDS: FLUCONAZOLE 200 MG TABLET PO SCH (09:18)
[2016-06-17] MEDS: ANASTROZOLE 1 MG TABLET PO SCH (09:19)
[2016-06-17 13:20] VITALS: BP 97/55
[2016-06-17] MEDS: ERTAPENEM 1 GM in SODIUM CHLORIDE 0.9% 50 ML IV SCH (14:34)
[2016-06-17] MEDS: SENNA/DOCUSATE TABLET PO PRN (18:48)
[2016-06-17 20:00] VITALS: BP 102/65
[2016-06-18 01:27] VITALS: BP 92/53
[2016-06-18] MEDS: HYDROmorphone 1 MG/ML, 1ML IVPush PRN ×8 (01:44→23:42)
[2016-06-18] MEDS: HYDROcodone/APAP 10/325 MG TABLET PO PRN ×5 (06:04→22:35)
[2016-06-18 07:23] VITALS: BP 103/63
[2016-06-18] MEDS: ANASTROZOLE 1 MG TABLET PO SCH (07:56)
[2016-06-18] MEDS: FLUCONAZOLE 200 MG TABLET PO SCH (10:02)
[2016-06-18] MEDS: ENOXAPARIN 40 MG/0.4 ML SQ SCH (10:02)
[2016-06-18 12:19] VITALS: BP 100/64
[2016-06-18] MEDS: ERTAPENEM 1 GM in SODIUM CHLORIDE 0.9% 50 ML IV SCH (14:17)
[2016-06-18 19:52] VITALS: BP 113/68
[2016-06-19] MEDS: HYDROmorphone 1 MG/ML, 1ML IVPush PRN ×4 (01:50→11:46)
[2016-06-19 01:53] VITALS: BP 102/63
[2016-06-19 06:22] VITALS: BP 125/68
[2016-06-19] MEDS: HYDROcodone/APAP 10/325 MG TABLET PO PRN ×2 (07:27→11:46)
[2016-06-19] MEDS: ENOXAPARIN 40 MG/0.4 ML SQ SCH (09:26)
[2016-06-19] MEDS: FLUCONAZOLE 200 MG TABLET PO SCH (09:26)
[2016-06-19] MEDS: ANASTROZOLE 1 MG TABLET PO SCH (09:27)
[2016-06-19] MEDS ORDERED: ENOX40SY4 SQ (11:04)
[2016-06-19] MEDS ORDERED: ERTA1VIA IVPB (11:05)
[2016-06-19] MEDS ORDERED: OXYC-223 PO (11:06)
[2016-06-19] MEDS ORDERED: FLUC200T PO (11:07)
[2016-06-19] MEDS ORDERED: DIAZ5TAB4 PO (11:07)
[2016-06-19] MEDS ORDERED: HYDR-3307 PO (11:08)
[2016-06-19] MEDS ORDERED: SENN1TAB7 PO (11:08)
[2016-06-19] MEDS ORDERED: TRAM50TA2 PO (11:10)
== END 2016-06-19 12:21 | DRG 856 ==
LOC: OUT 10:11 → ORIP 14:28 → 4NOR 15:34
PROVIDERS: ADMIT Orthopaedic Surgery; ATTEND Orthopaedic Surgery
PROC: 0JBP0ZZ Excision of Left Lower Leg Subcutaneous Tissue and Fascia, Open Approach (ICD-10-PCS; principal; 2016-05-29 12:00)
PROC: 02HV33Z Insertion of Infusion Device into Superior Vena Cava, Percutaneous Approach (ICD-10-PCS; 2016-06-03)
PROC: B5181ZA Fluoroscopy of Superior Vena Cava using Low Osmolar Contrast, Guidance (ICD-10-PCS; 2016-06-03)
PROC: B548ZZA Ultrasonography of Superior Vena Cava, Guidance (ICD-10-PCS; 2016-06-03)
PROC: 0QBH0ZZ Excision of Left Tibia, Open Approach (ICD-10-PCS; 2016-06-04)
PROC: 3E1U38Z Irrigation of Joints using Irrigating Substance, Percutaneous Approach (ICD-10-PCS; 2016-06-04)
PROC: 0QPH04Z Removal of Internal Fixation Device from Left Tibia, Open Approach (ICD-10-PCS; 2016-06-12)
PROC: 0QHH04Z Insertion of Internal Fixation Device into Left Tibia, Open Approach (ICD-10-PCS; 2016-06-12)
PROC: 0QBH0ZZ Excision of Left Tibia, Open Approach (ICD-10-PCS; 2016-06-12)
DX: T81.4XXA Infection following a procedure, initial encounter (principal); G93.40 Encephalopathy, unspecified; T81.31XA Disruption of external operation (surgical) wound, not elsewhere classified, initial encounter; G89.29 Other chronic pain; Z96.643 Presence of artificial hip joint, bilateral; K21.9 Gastro-esophageal reflux disease without esophagitis; I10 Essential (primary) hypertension; B95.0 Streptococcus, group A, as the cause of diseases classified elsewhere; B95.4 Other streptococcus as the cause of diseases classified elsewhere; Y83.8 Other surgical procedures as the cause of abnormal reaction of the patient, or of later complication, without mention of misadventure at the time of the procedure; Z90.79 Acquired absence of other genital organ(s); Z90.722 Acquired absence of ovaries, bilateral; Z85.3 Personal history of malignant neoplasm of breast; Z79.811 Long term (current) use of aromatase inhibitors; Z87.81 Personal history of (healed) traumatic fracture; Y92.89 Other specified places as the place of occurrence of the external cause
CPT/HCPCS: 36415; 36569; 70450; 76000; 76937; 77001; 80053; 82565; 84520; 85025; 85651; 86140; 87015; 87070; 87075; 87102; 87106; 87116; 87147; 87176; 87205; 87206; C1713; J0690; J1100; J1170; J1335; J1650; J1885; J2248; J2250; J2405; J2704; J3010; J3370; J3490; C1751; J0330; J2060; J7050; J7120

== ENCOUNTER → 2017-03-27 | Outpatient (CLI) | payer MEDICARE ==
[~2017-03-27] MED LIST changes: +ACET500T71 PO; -ACET500T76 PO; +ANAS1TAB3 PO; +ASPI325T17 PO; -ASPI325T4 PO; +CHOL40002 PO; -CHOL500014 PO; +CHOL500045 PO; +ENOX40SY4 SQ; +ERTA1VIA IVPB; +FLUC200T PO; -HYDR-3138 PO; -HYDR-3144 PO; +HYDR-3237 PO; +HYDR-3245 PO; +HYDR-3307 PO; -HYDR4TAB16 PO; +HYDR4TAB48 PO; -MELO-184 PO; +MELO15TA24 PO; +MULT-516 PO; +NIAC10002 PO; +OMEP20TA62 PO; +OXYC-302 PO; +OXYC-306 PO; +SENN1TAB7 PO; +SULF1TAB24 PO
== END ==
LOC: ROC 10:13
PROVIDERS: ATTEND Radiology Radiation Oncology
DX: Z08 Encounter for follow-up examination after completed treatment for malignant neoplasm (principal); C50.911 Malignant neoplasm of unspecified site of right female breast
CPT/HCPCS: 99213; G0463

== ENCOUNTER → 2017-09-28 | Outpatient (CLI) | payer MEDICARE | END | disposition home or self-care (01) | LOC: ROC 14:30 | PROVIDERS: ATTEND Radiology Radiation Oncology | DX: C50.411 Malignant neoplasm of upper-outer quadrant of right female breast (principal); Z87.891 Personal history of nicotine dependence | CPT/HCPCS: 99213; G0463 ==

== ENCOUNTER 2017-12-05 10:24 | Inpatient (IN) | payer MEDICARE, OTHER ==
[~2017-12-05] VITALS: Ht 165.1 cm; Wt 70.3 kg
[~2017-12-05 10:24] MED LIST changes: -ANAS1TAB3 PO; +ANAS1TAB49 PO; -SENN1TAB7 PO; +SENN1TAB8 PO
[2017-12-05] MEDS ORDERED: CEPH-368 PO (10:41)
[2017-12-05] MEDS ORDERED: FLUO10CA13 PO (10:41)
[2017-12-05] MEDS ORDERED: HYDROmorphone 2 MG/ML, 1ML ONE ×2 (10:46→12:09)
[2017-12-05] MEDS ORDERED: ONDANSETRON 2MG/ML, 2ML ONE (10:46)
[2017-12-05] MEDS: HYDROmorphone 2 MG/ML, 1ML IVPush PRN ×8 (10:51→22:07)
[2017-12-05] MEDS ORDERED: ONDANSETRON 2MG/ML, 2ML IVPush ONE (11:00)
[2017-12-05 11:51] LABS: BASOPHILS # (AUTO) 0.03 x10^3/uL (0-0.1); BASOPHILS % (AUTO) 0 % (0-1); EOSINOPHILS # (AUTO) 0.05 x10^3/uL (0-0.4); EOSINOPHILS % (AUTO) 1 % (1-7); LYMPHOCYTES # (AUTO) 1.23 x10^3/uL (1-3.4); LYMPHOCYTES % (AUTO) 12 % (22-44); MD NO; MEAN CORPUSCULAR HEMOGLOBIN 32.1 pg (27.0-34.8); MEAN CORPUSCULAR HGB CONC 33.2 g/dL (32.4-35.8); MEAN CORPUSCULAR VOLUME 96.6 fL (80-100); MEAN PLATELET VOLUME 7.9 fL (7.4-10.4); MONOCYTES # (AUTO) 0.55 x10^3/uL (0.2-0.8); MONOCYTES % (AUTO) 6 % (2-9); NEUTROPHILS # (AUTO) 8.25 x10^3/uL (1.8-6.8); NEUTROPHILS % (AUTO) 82 % (42-75); PLATELET COUNT 330 x10^3/uL (130-400); RED BLOOD COUNT 4.59 x10^6/uL (3.82-5.3); RED CELL DISTRIBUTION WIDTH 15.8 % (9.6-15.2)
[2017-12-05] MEDS ORDERED: hydrALAzine 20 MG/ML, 1ML IVPush PRN (12:00)
[2017-12-05] MEDS: FLUCONAZOLE 200 MG TABLET PO SCH (12:00)
[2017-12-05] MEDS ORDERED: ENALAPRILAT 1.25 MG/ML, 2ML IVPush PRN (12:00)
[2017-12-05 12:01] LABS: ALBUMIN 3.9 g/dL (3.4-5.0); ANION GAP 7 mmol/L (5-15); CALCIUM 8.7 mg/dL (8.5-10.1); CHLORIDE 105 mmol/L (98-107)
[2017-12-05 12:05] LABS: ALANINE AMINOTRANSFERASE 28 U/L (12-78); ALKALINE PHOSPHATASE 101 U/L (45-117); BILIRUBIN,TOTAL 0.4 mg/dL (0.2-1.0); CREATININE 0.73 mg/dL (0.55-1.02); TOTAL PROTEIN 7.2 g/dL (6.4-8.2)
[2017-12-05 12:39] LABS: HCT (SEDRATE) 44.3 % (34.6-47.8)
[2017-12-05] MEDS ORDERED: HYDROmorphone 2 MG/ML, 1ML IV ONE (14:00)
[2017-12-05 14:15] VITALS: BP 183/75
[2017-12-05 16:07] VITALS: BP 176/91
[2017-12-05] MEDS ORDERED: CEPHALEXIN 500 MG CAPSULE PO SCH (17:00)
[2017-12-05] MEDS: OXYcodone IR 5MG TABLET PO PRN ×2 (17:37→23:30)
[2017-12-05 18:40] VITALS: BP 143/72
[2017-12-05] MEDS: CEPHALEXIN 500 MG CAPSULE PO SCH (21:18)
[2017-12-06 01:55] VITALS: BP 115/67
[2017-12-06] MEDS: HYDROmorphone 2 MG/ML, 1ML IVPush PRN ×7 (03:30→22:15)
[2017-12-06] MEDS: D5%-0.45NACL+KCL 20MEQ 1,000 ML IV SCH ×2 (06:12→22:21)
[2017-12-06] MEDS: ACETAMINOPHEN 325 MG TABLET PO PRN (06:12)
[2017-12-06 07:52] VITALS: BP 115/67
[2017-12-06] MEDS: CEPHALEXIN 500 MG CAPSULE PO SCH ×2 (08:16→20:21)
[2017-12-06] MEDS: FLUOXETINE 10 MG CAP PO SCH (08:16)
[2017-12-06] MEDS: OXYcodone IR 5MG TABLET PO PRN ×4 (08:16→20:21)
[2017-12-06] MEDS: OMEPRAZOLE 20 MG CAPSULE.DR PO SCH (08:16)
[2017-12-06] MEDS: FLUCONAZOLE 200 MG TABLET PO SCH (08:17)
[2017-12-06] MEDS: DIAZEPAM 5 MG TABLET PO PRN (10:53)
[2017-12-06 15:22] VITALS: BP 94/60
[2017-12-06 20:23] VITALS: BP 104/65
[2017-12-07] MEDS: OXYcodone IR 5MG TABLET PO PRN ×4 (00:05→19:01)
[2017-12-07] MEDS: HYDROmorphone 2 MG/ML, 1ML IVPush PRN ×9 (01:28→17:45)
[2017-12-07 02:28] VITALS: BP 123/59
[2017-12-07 07:13] VITALS: BP 95/60
[2017-12-07] MEDS: CEPHALEXIN 500 MG CAPSULE PO SCH ×2 (08:12→21:31)
[2017-12-07] MEDS: FLUOXETINE 10 MG CAP PO SCH (08:13)
[2017-12-07] MEDS: FLUCONAZOLE 200 MG TABLET PO SCH ×2 (08:13→09:19)
[2017-12-07] MEDS: OMEPRAZOLE 20 MG CAPSULE.DR PO SCH (08:13)
[2017-12-07] MEDS: DIAZEPAM 5 MG TABLET PO PRN ×3 (09:03→19:01)
[2017-12-07] MEDS: ACETAMINOPHEN 325 MG TABLET PO PRN (09:03)
[2017-12-07] MEDS: D5%-0.45NACL+KCL 20MEQ 1,000 ML IV SCH (10:17)
[2017-12-07 12:31] VITALS: BP 114/68
[2017-12-07] MEDS ORDERED: FENTANYL PF 250 MCG/5ML ONE (14:31)
[2017-12-07] MEDS ORDERED: MIDAZOLAM 1 MG/ML, 2ML ONE ×2 (14:31→17:36)
[2017-12-07] MEDS ORDERED: PROPOFOL 10 MG/ML, 20ML ONE (14:32)
[2017-12-07] MEDS ORDERED: ONDANSETRON 2MG/ML, 2ML ONE (14:33)
[2017-12-07] MEDS ORDERED: DEXAMETHASONE 4 MG/ML, 1ML ONE ×2 (14:33)
[2017-12-07] MEDS ORDERED: ROCURONIUM 10MG/ML,5ML ONE (14:33)
[2017-12-07] MEDS ORDERED: GLYCOPYRROLATE 0.4 MG/2 ML, 2ML ONE (14:34)
[2017-12-07] MEDS ORDERED: NEOSTIGMINE 1 MG/ML, 10ML ONE (14:34)
[2017-12-07] MEDS ORDERED: SODIUM CHLORIDE 0.9% PF 10ML ONE (14:35)
[2017-12-07] MEDS ORDERED: CEFAZOLIN 1,000 MG ONE ×2 (14:35)
[2017-12-07] MEDS ORDERED: ONDANSETRON 2MG/ML, 2ML IV PRN ×2 (15:00→18:30)
[2017-12-07] MEDS ORDERED: HYDROmorphone 1 MG/ML, 1ML IV PRN ×2 (15:00→18:30)
[2017-12-07] MEDS ORDERED: MEPERIDINE/PF 25MG/0.5ML IVPush PRN (15:00)
[2017-12-07] MEDS ORDERED: MORPHINE SULFATE 4 MG/ML, 1ML IVPush PRN (15:00)
[2017-12-07] MEDS ORDERED: ONDANSETRON ODT 8 MG PO PRN (15:00)
[2017-12-07] MEDS ORDERED: LABETALOL 5MG/ML, 20ML IV PRN (15:00)
[2017-12-07] MEDS ORDERED: OXYcodone 5 MG/5 ML ORAL.SOL UDC PO PRN (15:00)
[2017-12-07] MEDS ORDERED: hydrALAzine 20 MG/ML, 1ML IV PRN (15:00)
[2017-12-07] MEDS ORDERED: PROMETHAZINE 25 MG/ML, 1ML IM PRN ×2 (15:00)
[2017-12-07] MEDS ORDERED: PROMETHAZINE 25 MG/ML, 1ML IV PRN (15:00)
[2017-12-07] MEDS: FENTANYL PF 100 MCG/2ML IVPush PRN ×2 (15:21→15:33)
[2017-12-07] MEDS: FENTANYL PF 100 MCG/2ML IV PRN ×3 (17:05→17:34)
[2017-12-07] MEDS ORDERED: FENTANYL PF 100 MCG/2ML ONE (17:05)
[2017-12-07] MEDS ORDERED: MEPERIDINE/PF 50 MG/ML ONE (17:05)
[2017-12-07] MEDS ORDERED: OXYcodone 5 MG/5 ML ORAL.SOL UDC ONE (17:06)
[2017-12-07] MEDS ORDERED: HYDROmorphone 2 MG/ML, 1ML ONE (17:18)
[2017-12-07] MEDS ORDERED: MIDAZOLAM 1 MG/ML, 2ML IV PRN (18:00)
[2017-12-07] MEDS ORDERED: HYDROcodone/APAP 7.5-325MG/15ML UDC PO PRN (18:30)
[2017-12-07] MEDS ORDERED: DIPHENHYDRAMINE 25 MG CAPSULE PO PRN (18:30)
[2017-12-07] MEDS: KETOROLAC 30 MG/1 ML IV SCH (18:30)
[2017-12-07 19:30] VITALS: BP 102/51
[2017-12-07] MEDS: SODIUM CHLORIDE FLUSH 10ML SYR IVF SCH (21:30)
[2017-12-07] MEDS: DOCUSATE 100 MG CAPSULE PO SCH (21:31)
[2017-12-07] MEDS: CEFAZOLIN PMX 1GM/50ML 50 ML IVPB SCH (22:57)
[2017-12-07 23:53] VITALS: BP 109/67
[2017-12-08] MEDS: OXYcodone/APAP 5/325MG TABLET PO PRN ×4 (01:04→15:35)
[2017-12-08] MEDS: KETOROLAC 30 MG/1 ML IV SCH ×2 (02:30→07:31)
[2017-12-08 04:07] VITALS: BP 101/51
[2017-12-08] MEDS ORDERED: ENOXAPARIN 40 MG/0.4 ML SQ SCH (06:00)
[2017-12-08] MEDS: CEFAZOLIN PMX 1GM/50ML 50 ML IVPB SCH (06:39)
[2017-12-08 06:46] VITALS: BP 105/59
[2017-12-08] MEDS: D5%-0.45NACL+KCL 20MEQ 1,000 ML IV SCH (08:00)
[2017-12-08] MEDS: FLUOXETINE 10 MG CAP PO SCH (08:01)
[2017-12-08] MEDS: DOCUSATE 100 MG CAPSULE PO SCH (08:01)
[2017-12-08] MEDS: CEPHALEXIN 500 MG CAPSULE PO SCH (08:01)
[2017-12-08] MEDS: OMEPRAZOLE 20 MG CAPSULE.DR PO SCH (08:01)
[2017-12-08] MEDS: FLUCONAZOLE 200 MG TABLET PO SCH (08:09)
[2017-12-08] MEDS: SODIUM CHLORIDE FLUSH 10ML SYR IVF SCH (08:13)
[2017-12-08] MEDS ORDERED: CHOLECALCIFEROL 1,000 UNIT TABLET PO SCH (09:00)
[2017-12-08 13:15] VITALS: BP 114/68
[2017-12-08] MEDS ORDERED: ENOX30SY4 SC (13:52)
[2017-12-08] MEDS ORDERED: OXYC-307 PO (14:14)
[2017-12-08] MEDS ORDERED: ENOX40SY4 SQ (14:16)
== END 2017-12-08 15:50 | disposition home or self-care (01) | DRG 482 ==
LOC: ED 11:51 → EDIP 11:52 → 4NOR 13:30 → DCLOUNGE 12-08 15:50
PROVIDERS: ADMIT Hospitalist; ATTEND Hospitalist
PROC: 0QSC04Z Reposition Left Lower Femur with Internal Fixation Device, Open Approach (ICD-10-PCS; principal; 2017-12-07 15:30)
DX: S72.352A Displaced comminuted fracture of shaft of left femur, initial encounter for closed fracture (principal); I10 Essential (primary) hypertension; W01.0XXA Fall on same level from slipping, tripping and stumbling without subsequent striking against object, initial encounter; Y93.01 Activity, walking, marching and hiking; Z96.643 Presence of artificial hip joint, bilateral; K21.9 Gastro-esophageal reflux disease without esophagitis; Y99.0 Civilian activity done for income or pay; Z79.2 Long term (current) use of antibiotics; Z85.048 Personal history of other malignant neoplasm of rectum, rectosigmoid junction, and anus; Z85.3 Personal history of malignant neoplasm of breast; Z87.891 Personal history of nicotine dependence; Z90.49 Acquired absence of other specified parts of digestive tract; Z92.3 Personal history of irradiation; Y92.69 Other specified industrial and construction area as the place of occurrence of the external cause
CPT/HCPCS: 36415; 71045; 76000; 80053; 85025; 85651; 86140; 93005; 96374; 99285; C1713; G0378; J0690; J1100; J1170; J1650; J2175; J2250; J2405; J2704; J2710; J3010; J3480